=== PATIENT | female | born 1995 | race Caucasian/White ===

== ENCOUNTER 2016-11-18 06:53 | Day surgery (SDC) | payer BC, MEDICAID ==
[~2016-11-18] VITALS: Ht 162.6 cm; Wt 79.0 kg
--- NOTE | 2016-11-24 09:20 | ER ---
ADMIT: 11/18/2016 RM/LOC: 619 [facility] MR#: [id number] 2620 [facility] [address] [place] [phone] [address] [place] [address] Emergency Room Report SEX: F AGE: 21 : 1995 DATE: 11/18/2016 CHIEF COMPLAINT: Right lower quadrant pain. HISTORY OF PRESENT ILLNESS: The patient is a 21-year-old female, who is 8 weeks by dates and previous ultrasound done this week at her timber repairer's office. She is G 2, P 1, and her first was couple of weeks premature with no complications. She comes in with 2 hours severe right lower quadrant pain that has been constant since onset. There is no radiation of the pain. It is quite severe and sharp in nature. She denies any vaginal bleeding or discharge. She has not have any bowel or bladder complaints and is not having any vomiting but has felt slightly nauseous. She did have an ultrasound done just 2 days ago at her timber repairer's office, which showed an 8-week IUP, and I was not given any history from the patient. There are not any problems with her adnexa. REVIEW OF SYSTEMS: Ten-point review of systems is done and otherwise negative except as in HPI. PAST MEDICAL HISTORY: Significant for anxiety, depression, GERD, and kidney stones. PREVIOUS SURGERIES: She had a lithotripsy and a . MEDICATIONS: See nurse's note. ALLERGIES: NONE. SOCIAL HISTORY: Denies smoking, drugs, or alcohol. PHYSICAL EXAMINATION: VITAL SIGNS: Initial blood pressure is 116/62, heart rate is 90, pulse is 20, temp of 96.5, sats 98% on room air. GENERAL: The patient is uncomfortable. She does appear to be in pain. HEENT: Atraumatic. Airway is patent. LUNGS: Clear to auscultation. HEART: Regular rate and rhythm. ABDOMEN: Soft. She is tender in the right lower quadrant. There is no rebound tenderness. No guarding. SKIN: Warm and dry. No pedal edema. No calf tenderness. NEUROLOGIC: Motor sensation grossly intact in all 4 extremities. Ultrasound shows an enlarged right adnexa/ovary with approximately 2 cm echogenic what could be a cyst or hemorrhagic cyst in the right ovary with no obvious signs of torsion. There is also 8-week IUP present. They were not able to visualize the appendix on the ultrasound, but did not see any signs of inflammation or appendicitis that were obvious and the collecting system for the right kidney was normal. Urinalysis shows hazy urine with 6 red blood cells, otherwise unremarkable and CBC has a white count of 9.6 with a hemoglobin of 12.2. ADMIT: 11/18/2016 RM/LOC: 619 [facility] MR#: [id number] [address] [address] [place] [address] Emergency Room Report SEX: F AGE: 21 : 1995 EMERGENCY DEPARTMENT COURSE: The patient was quite tender and appeared to be in pain initially. I did repeat her ultrasound here, which shows some findings that could be just a hemorrhagic cyst on her ovary, but due to her extreme pain and inability to get a good comparison on her previous ultrasound, I did contact her timber repairer in [place]. I spoke to Dr. Muniz who is covering for her OB doctor, and he agreed to have the patient transferred but the patient later in her stay in the ER decided just to stay here. I contacted Dr. Mora who evaluated the patient in the ER. We will be bringing the patient in for further management of her right lower quadrant pain. While in the ER, she had some morphine IM and Benadryl. She had some continued pain and at that point, we went ahead and got an IV started as her blood pressure dropped a little bit with the morphine. I gave her liter normal saline bolus and later in her stay, she was given additional 4 mg of morphine IV. The patient will be admitted with diagnoses of: 1. Eight week intrauterine . 2. Right lower quadrant pain. 3. Possible hemorrhagic right ovarian cyst. Jacob Hernandes MD/ kymberly JOB #: [id number] CC: Araceli Mora MD, Attending Physician Araceli Mora MD, Family Physician
[2016-11-25] MEDS ORDERED: PRENATAL VIT1 TAB PO (10:03)
[2016-11-25] MEDS ORDERED: REGLAN DPS5 MG PO (10:04)
[2016-11-25] MEDS ORDERED: CYMBALTA30 MG PO (10:04)
[2016-11-25] MEDS ORDERED: PHENERGAN DPS25 MG PO (10:05)
[2016-11-25] MEDS ORDERED: TYLENOL EXTRA500 M1 PO (10:05)
[2016-11-25] MEDS ORDERED: DICLEGIS DR 101 EACH PO (10:06)
--- NOTE | 2016-11-27 19:20 | OR ---
ADMIT: 11/18/2016 RM/LOC: [facility] MR#: [id number] [address] [address] [address] [place] [address] Operative/Delivery Room Report SEX: F AGE: 21 : 1995 SURGERY DATE: 11/18/2016 SURGEON: Jaylan Hughes MD This 21-year-old female, 8 weeks with severe right lower quadrant pain. I was asked by Dr. Araceli Mora to come in and assist in gaining abdominal access in a difficult abdomen to access. After I was scrubbed in, made an incision in the supraumbilical region. We had tried to gain access for laparoscopic approach at the infraumbilical site and ended up having a little bit too much subcutaneous air to make that easy to do. I used a Veress needle to get enough adequate insufflation. I placed a [address] Mora then placed another left lower quadrant 5 mm port. With this right lower quadrant pain, she was found to have a torsion of the right ovary. We did inspect the appendix and I was there for that and it looked normal. Dr. Mora of course took care of the torsion of the right ovary and since there was no problem with the appendix or anything else from a general surgical standpoint, I left the room and she finished up the case. Jaylan Hughes MD/ kymberly JOB #: [id number] CC: Araceli Mora MD, Attending Physician Araceli Mora MD, Family Physician
--- NOTE | 2016-12-19 09:31 | HP ---
ADMIT: 11/18/2016 RM/LOC: 619 [facility] MR#: [id number] [address] [address] [address] [place] [address] Pre-OP History and Physical SEX: F AGE: 21 : 1995 DATE OF SERVICE: REASON FOR ADMISSION: Right lower quadrant pain. HISTORY OF PRESENT ILLNESS: The patient is a 21-year-old, 2, para 1-0- 0-1 who presents emergency room at approximately 8 weeks 4 days by ultrasound with sudden onset of acute right lower quadrant pain upon awakening in the morning of 11/18/2016. The patient states that she had been feeling generally well with the exception of a gastroenteritis with some diarrhea, nausea, and vomiting over the past 2 weeks. The patient stated that she had been feeling better, however, on the morning of 11/18/2016, woke up with sudden onset of severe right lower quadrant pain. The patient also complained of nausea and vomiting associated with the pain. She denied any fever or chills. The patient had been seen by Dr. Agustina Carson in the office on 11/16/2016, and had a normal pelvic ultrasound with normal-appearing intrauterine and no comments on any abnormal areas noted within the ovaries. Evaluation in the emergency room included an ultrasound of the pelvis which showed a normal- appearing left ovary, 2.5 x 2.8 x 1.6 cm and right ovary 5.3 x 2.8 x 4 cm with a 2.2 cm echogenic structure within the right ovary which is area of the patient's tenderness. The patient was also noted to have an intrauterine measuring 8 weeks and 4 days by crown-rump length and cardiac activity noted. PAST MEDICAL HISTORY: Anxiety and depression. CURRENT MEDICATIONS: 1. Duloxetine 30 mg in the morning and 60 mg p.m. 2. Zantac as needed for reflux. ALLERGIES: NO KNOWN MEDICAL ALLERGIES. PAST SURGICAL HISTORY: section x1. SOCIAL HISTORY: The patient quit smoking recently. She denies any alcohol or drug use. REVIEW OF SYSTEMS: GENERAL: Patient is feeling unwell. She denies any fever or chills. CARDIOVASCULAR: No chest pain, palpitations, or dyspnea with exertion. RESPIRATORY: No cough, wheeze, or shortness of breath. GASTROINTESTINAL: Positive for nausea, vomiting, and diarrhea over the past 2 weeks. FEMALE GENITOURINARY: No vaginal bleeding or abnormal discharge. She does complain of right lower quadrant pain as described above. MUSCULOSKELETAL: No joint pain or muscle weakness. PHYSICAL EXAMINATION: VITAL SIGNS: On admission, blood pressure 116/62, pulse 90, respirations 20, temperature 96.5. GENERAL: Patient is alert and oriented and does appear to be in acute ADMIT: 11/18/2016 RM/LOC: 619 [facility] MR#: [id number] 26[address] [place] [id number] [address] [facility] [place] [address] Pre-OP History and Physical SEX: F AGE: 21 : 1995 distress. HEART: Regular rate and rhythm without murmurs, gallops, or rubs. LUNGS: Clear to auscultation bilaterally. ABDOMEN: Soft, nondistended. The patient has positive tenderness to palpation in the right and left lower quadrants with right greater than left. She also has mild rebound tenderness and some referred tenderness to the right lower quadrant when palpating the left. FEMALE GENITOURINARY: Exam was performed in the emergency room. EXTREMITIES: No edema. No calf tenderness. LABORATORY DATA: White count 9.6, hemoglobin 12.2, hematocrit 35.8, and platelets 198. Urine negative. ASSESSMENT: A 21-year-old female, 2, para 1-0-0-1, approximately 8 weeks gestation with acute right lower quadrant pain. The etiology of this pain of uncertain. Pelvic ultrasound does reveal an echogenic area on the right ovary measuring 2.2 cm in diameter. However, there is good flow to the ovary noted with ultrasound. The patient is afebrile and does not have an elevated white count which could be consistent with appendicitis. Due to the patient's extreme tenderness in the right lower quadrant, plan is to proceed with diagnostic laparoscopy. The risks, benefits, and alternatives of the surgery including, but not limited to the risk of bleeding, possibly requiring blood transfusion, the risk of infection, the risk of injury to bowel or bladder have been discussed with the patient. The patient was also counseled regarding the risk of surgery and anesthesia. The patient understands these risks and agrees to proceed. Araceli Mora MD/ kymberly JOB #: [id number] CC: Araceli Mora, Attending Physician Araceli Mora, Family Physician
--- NOTE | 2016-12-19 09:38 | OR ---
ADMIT: 11/18/2016 RM/LOC: SSS [facility] MR#: [id number] [address] [address] [address] [place] [address] Operative/Delivery Room Report SEX: F AGE: 21 : 1995 SURGERY DATE: 11/18/2016 SURGEON: Araceli Mora MD NAME OF THE PROCEDURE: Diagnostic laparoscopy with resolution of right ovarian torsion. PREOPERATIVE DIAGNOSES: 1. Acute right lower quadrant pain. 2. Intrauterine gestation, approximately 8 weeks. POSTOPERATIVE DIAGNOSIS: Right ovarian and fallopian tube torsion. FINDINGS: At the time of surgery: 1. Right tube and ovary torsed on the utero-ovarian and pedicle as well as torsion of the right tube. 2. A dense adhesions from the anterior surface of the uterus to the anterior abdominal wall as well as some omental adhesions to the anterior abdominal wall, which were left intact due to the intrauterine . 3. Normal-appearing left tube and ovary. 4. Normal-appearing appendix. INDICATIONS FOR PROCEDURE: The patient is a 21-year-old female, who had presented to the emergency room on 11/18/2016 with complaints of right lower quadrant pain which is acute in nature and had sudden onset approximately 2 hours prior to arrival to the emergency room. The patient stated that the pain woke her from sleep and with constant nature. She did complain of some nausea and vomiting with the pain, but denies any fever or chills. The patient had a normal 8-week ultrasound with Dr. Carson on 11/16/2016. Imaging was performed. The pelvic ultrasound showed a right ovary with approximately 2 cm cyst, but appeared to have adequate blood flow to the right ovary. The left ovary appeared normal and there was a normal intrauterine measuring 8 weeks 4 days. The patient also had a white blood count performed which was normal, and the patient remained afebrile. The patient continued to be very uncomfortable, and so decision was made to proceed with diagnostic laparoscopy to evaluate first the patient's pain. Risks, benefits, and alternatives of surgery including, but not limited to, risk of bleeding, possibly requiring a blood transfusion, risk of infection, risk of injury to bowel or bladder were discussed with the patient, and she agreed to proceed. DESCRIPTION OF PROCEDURE: The patient was taken to the operating room where general anesthesia was obtained without difficulty. A sponge-stick was placed the patient's vagina and a Franco catheter was placed in the bladder. A 5 mm infraumbilical incision was made with scalpel after local infiltration of 0.25% Marcaine. Several attempts were made with the Veress needle and was felt that there was a scar tissue below the umbilicus, and the Veress needle was not able to be properly inserted. Thus, the port was then tried and was still unable to get into the peritoneal cavity. At this point, Dr. Hughes ADMIT: 11/18/2016 RM/LOC: [facility] MR#: [id number] [address] [address] [address] [place] [address] Operative/Delivery Room Report SEX: F AGE: 21 : 1995 from General Surgery was able to assist and gaining entry with a Veress needle with an incision just superior to the umbilicus. The patient's abdomen was then insufflated to patient pressure of 15 mmHg and good gas flow and low patient opening pressure were noted with insufflation. At this point, a 5 mm port was placed in this incision and a camera was used to ensure intraperitoneal placement. At this point, a second 5 mm incision was made in the patient's left lower quadrant. A 5 mm port was then placed into this incision. The pelvis was inspected and it was noted that the right ovary and tube appeared twisted and the tube was dusky in appearance. This was untwisted and with one twist the torsion did resolve. There was excellent resolution of the dusky nature of the tubes and the ovary also appeared normal. It did appear that there could be some possible infarcted areas on the ovary, but overall, the ovary did appear to have good return of blood flow after resolving the torsion. At this point, the left tube and ovary were identified and were noted to be normal in appearance. The uterus was examined and there was noted to be an area of dense adhesions from the anterior abdominal wall to the anterior surface of the uterus and there was some omentum adhesed to the anterior abdominal wall as well. Due to the patient's intrauterine , it was decided not to proceed with any lysis of adhesions involving the uterus at this time. At this point, the ovary was again inspected and it appeared to be normal with good blood flow. The patient's appendix was identified and also noted to be normal in appearance. At this point, the CO2 gas was removed from the patient's abdomen, and the trocars were removed under direct visualization. The skin incisions were closed with Dermabond. The sponge-stick was removed from the patient's vagina, and the patient went to recovery in stable condition. All sponge and needle counts were correct. Araceli Mora MD/ kymberly JOB #: [id number] CC: Araceli Mora, Attending Physician Araceli Mora, Family Physician Agustina Carson MD
== END 2016-11-18 16:48 | disposition home or self-care (01) ==
LOC: ER 06:53 → 6PED 10:05 → SSS 10:05 → ER 10:05 → SSS 16:48
PROC: 0US04ZZ Reposition Right Ovary, Percutaneous Endoscopic Approach (ICD-10-PCS; principal; 2016-11-18)
DX: O34.81 Maternal care for other abnormalities of pelvic organs, first trimester (principal); N83.53 Torsion of ovary, ovarian pedicle and fallopian tube; N83.201 Unspecified ovarian cyst, right side; Z3A.08 8 weeks gestation of pregnancy

== ENCOUNTER 2016-11-21 09:20 | Emergency (ER) | payer BC, MEDICAID ==
[2016-11-25] MEDS ORDERED: PRENATAL VIT1 TAB PO (10:03)
[2016-11-25] MEDS ORDERED: CYMBALTA30 MG PO (10:04)
[2016-11-25] MEDS ORDERED: REGLAN DPS5 MG PO (10:04)
[2016-11-25] MEDS ORDERED: PHENERGAN DPS25 MG PO (10:05)
[2016-11-25] MEDS ORDERED: TYLENOL EXTRA500 M1 PO (10:05)
[2016-11-25] MEDS ORDERED: DICLEGIS DR 101 EACH PO (10:06)
--- NOTE | 2016-12-01 14:22 | ER ---
ADMIT: 11/21/2016 RM/LOC: ER [facility] MR#: [id number] [address] [address] [address] [place] [address] Emergency Room Report SEX: F AGE: 21 : 1995 DATE: 11/21/2016 ADDENDUM: CHIEF COMPLAINT: Nausea. HISTORY OF PRESENT ILLNESS: This is a 21-year-old female who is . She just recently had torsion repair on Monday. She said her abdominal pain is doing okay with her Tylenol No. 3. She just has felt very nauseated. COURSE IN THE EMERGENCY ROOM: She was given a liter of fluids and Reglan. She actually feels significantly better. CLINICAL IMPRESSION: Discomforts of , nausea, and vomiting. DISPOSITION: Sent her home with Reglan, dispensing 20 tablets, having her followup with her PCP if worsen. DUNG De La Cruz / Enrique Albright MD / kymberly JOB #: [id number] CC: Enrique Albright MD, Attending Physician Epifanio Walsh MD, Family Physician
== END 2016-11-21 12:25 | disposition home or self-care (01) ==
LOC: ER 09:20
DX: O26.899 Other specified pregnancy related conditions, unspecified trimester (principal); R10.9 Unspecified abdominal pain; O21.9 Vomiting of pregnancy, unspecified; Z87.442 Personal history of urinary calculi

== ENCOUNTER 2016-11-23 13:06 | Observation (INO) | payer BC, MEDICAID, OTHER ==
[~2016-11-23] VITALS: Ht 162.6 cm; Wt 75.9 kg
--- NOTE | 2016-11-25 02:42 | ER ---
ADMIT: 11/23/2016 RM/LOC: ER [facility] MR#: [id number] 2620 [facility] [address] [place] [phone] [address] [place] [address] Emergency Room Report SEX: F AGE: 21 : 1995 DATE: 11/23/2016 TIME: 1306 hours. Please refer to my T-sheet for complete H and P. HISTORY OF PRESENT ILLNESS: Briefly, the patient is a 21-year-old, who comes in with pelvic pain, vomiting, not feeling well, diarrhea, recent exploratory lap where they de-torsed the right ovary. She is 9 weeks approximately. Still not improving. She said she has been in to the ER Monday and Monday for fluids and she is back. PHYSICAL EXAMINATION: VITAL SIGNS: Blood pressure 116/58, pulse 84, respirations 16, temp 98.5, saturating at 100%. GENERAL: No acute distress. HEENT: Grossly normal. LUNGS: Clear. HEART: Regular. ABDOMEN: Severely tender in the right lower quadrant and suprapubic. EMERGENCY DEPARTMENT COURSE: CBC was normal. Chemistries normal except CO2 of 20, UA normal. Did an ultrasound that revealed a slightly enlarged right ovary again, but good flow. No other abnormalities essentially. She was still having pain. We gave her Zofran. She was then feeling much better and perked up a lot. I talked to Dr. Pednleton document control clerk for Dr. Mora. She is going to come and evaluate in the ER for admission. We held pain medications as the patient did not want at this time. If she requests, then we will give her some. ASSESSMENT: 1. Pelvic/abdominal pain. 2. . 3. Dehydration. 4. Nausea, vomiting, and diarrhea. 5. Recent ovarian torsion. PLAN: Admit to the hospital. Gee Zheng MD/ kymberly JOB #: [id number] CC: Gee Zheng MD, Attending Physician Epifanio Walsh MD, Family Physician
[2016-11-25] MEDS ORDERED: PRENATAL VIT1 TAB PO (10:03)
[2016-11-25] MEDS ORDERED: CYMBALTA30 MG PO (10:04)
[2016-11-25] MEDS ORDERED: REGLAN DPS5 MG PO (10:04)
[2016-11-25] MEDS ORDERED: TYLENOL EXTRA500 M1 PO (10:05)
[2016-11-25] MEDS ORDERED: PHENERGAN DPS25 MG PO (10:05)
[2016-11-25] MEDS ORDERED: DICLEGIS DR 101 EACH PO (10:06)
--- NOTE | 2016-11-30 08:59 | HP ---
ADMIT: 11/23/2016 RM/LOC: 617 [facility] MR#: [id number] [facility]#: [id number] 2620 [facility] [address] [place] [phone] [address] [place] [address] History and Physical SEX: F AGE: 21 : 1995 DATE OF SERVICE: HISTORY OF PRESENT ILLNESS: This is a 21-year-old, G2, P1-0-0-1, with an intrauterine at 9 weeks and 4 days, presents with complaints of severe nausea, vomiting, and diarrhea. She had an L scope on 11/18/2016 for a torsed right ovary. Pain currently is now 2/10, prior to surgery was 10/10. She has been to the ER once since then for similar symptoms and discharged after fluids. She denies any fevers, chills, chest pain, shortness of breath, or vaginal bleeding. She also had diarrhea at that time. She is unable to tolerate any p.o. since Monday. She does note that she was having severe nausea and vomiting for approximately 1 week prior to sudden onset of pelvic pain, which led to the ovarian torsion diagnosis. PAST MEDICAL HISTORY: Anxiety. PAST SURGICAL HISTORY: , ureteral stents, and lithotripsy. MEDICATIONS: 1. vitamin. 2. Duloxetine 90 mg daily. ALLERGIES: NO KNOWN DRUG ALLERGIES. SOCIAL HISTORY: No tobacco, alcohol, or drug use. She is in a relationship. Denies any abuse. FAMILY HISTORY: Noncontributory. REVIEW OF SYSTEMS: See HPI. PHYSICAL EXAMINATION: VITAL SIGNS: Blood pressure is 116/56, pulse is 84, respirations 16, temperature is 98.5, and she is 100% on room air. GENERAL: She appears slightly uncomfortable in bed and shaking. She is alert and oriented x3. HEART: Regular rate and rhythm. No murmurs, rubs, or gallops. LUNGS: Clear to auscultation bilaterally. ABDOMEN: Normal bowel sounds. Her abdomen is soft, nondistended. There are no palpable masses. She has mild right upper quadrant tenderness to palpation as well as some mild right lower quadrant tenderness to palpation; however, her right upper quadrant is greater than the right lower quadrant. Otherwise, she has no pain with palpation anywhere in her abdomen. She has no rebound. There is no guarding. She does not have any pain related to resistance against hip flexion or heel pound test. Her incisions are clean, dry, and intact. EXTREMITIES: No significant edema. LABORATORY DATA: Sodium is 140, potassium 3.3, chloride is 108, CO2 is 20, BUN is 7, creatinine 0.6, and glucose is 88. White count is 9.4, hemoglobin is 12.0, and platelets are 251. Ultrasound was done and preliminary report ADMIT: 11/23/2016 RM/LOC: 617 [facility] MR#: [id number] [address] [address] [address] [place] [address] History and Physical SEX: F AGE: 21 : 1995 shows the right ovary is slightly enlarged measuring 5.0 x 3.2 x 3.5, which is approximately the same size it was on Monday with a small corpus luteal cyst noted. There is blood flow noted throughout the right ovary without any definitive sonographic evidence of ovarian torsion. IUP consistent with 9 weeks and 4 days with heart rate of 169. ASSESSMENT/PLAN: This is a 21-year-old, G2, P1-0-0-1, with intrauterine at 9 weeks and 4 days. Viable intrauterine 9 weeks and 4 days with severe nausea and vomiting. Most likely, nausea and vomiting is secondary to nausea and vomiting of exacerbated by dehydration based off physical exam and ultrasound findings. We will admit for observation overnight, make n.p.o. and rehydrate, re-evaluate in the morning at this time with no concern for needing to go to the OR for repeat ovarian torsion. Adilene Pendleton MD/ kymberly JOB #: [id number] CC: Araceli Mora, Attending Physician Araceli Mora, Family Physician
== END 2016-11-24 09:30 | disposition home or self-care (01) ==
LOC: ER 13:06 → 6PED 17:22
DX: O99.89 Other specified diseases and conditions complicating pregnancy, childbirth and the puerperium (principal); E86.0 Dehydration; F41.9 Anxiety disorder, unspecified; Z79.899 Other long term (current) drug therapy; Z3A.09 9 weeks gestation of pregnancy; Z98.890 Other specified postprocedural states